=== PATIENT | male | born 2005 | race Caucasian/White ===

== ENCOUNTER 2024-12-05 18:55 | Emergency (ER) | payer BC, SELFPAY ==
--- NOTE | ~2024-12-05 | XR_ITS ---
CLINICAL HISTORY: chest pain 1 view chest x-ray Comparison: None provided Findings: The lungs are clear. Heart size is normal. No acute fracture. IMPRESSION: 1. No acute findings. This document has been electronically signed by: Rocael Farias MD on 12/05/2024 20:19:38
--- NOTE | 2024-12-05 18:56 | ECG_ITS ---
Test Reason : CHEST PAIN Blood Pressure : */* mmHG Vent. Rate : 93 BPM Atrial Rate : 93 BPM P-R Int : 118 ms QRS Dur : 88 ms QT Int : 350 ms P-R-T Axes : 36 31 59 degrees QTcB Int : 435 ms Normal sinus rhythm Normal ECG No previous ECGs available Referred By: Alison Flaherty Electronically Signed By: PEDRO DOMÍNGUEZ MD
--- NOTE | 2024-12-05 18:56 | ED.GENADULT ---
HPI - General Adult General Chief complaint: Chest Pain Stated complaint: chest pain Time Seen by Provider: 12/05/24 19:42 History of Present Illness HPI narrative: Patient is a 19-year-old male presents today with having chest pain shortness of breath that started a few days ago. The pain lasts for a few minutes there is no trigger not associated with any shortness breath or diaphoresis. Patient from home. No history of diabetes, hypertension, high cholesterol, smoking, mi. no sudden deaths in the family. No dizziness. The pain is mid chest. Related Data Allergies Allergy/AdvReac Type Severity Reaction Status Date / Time No Known Allergies Allergy Verified 12/05/24 19:06 Review of Systems Review of Systems: Positive chest pain Yes all other systems are reviewed and are negative PENDING SALE TO [facility] Past Medical History Attestation statement: The following information was validated with the patient. Social History Social History Alcohol intake: current Alcohol intake frequency: 3 or more drinks per day Alcohol type: beer, wine and hard liquor Smoked in Last 30 Days: No Use of substances other than those prescribed or required for medical reasons: No Advance Directives: No Advance Directives Information Provided: No Do you have a plan to hurt others: No Plan Physical Exam ED Exam Exam: Appearance: Alert. Oriented X3. No acute distress. Eyes: Pupils equal, round and reactive to light. ENT: Pharynx normal. Neck: Normal inspection. Neck supple. No lymph nodes noted. No crepitus CVS: Normal heart rate and rhythm. Pulses normal. Normal S1 and S2 Respiratory: No respiratory distress. Breath sounds normal. No Wheezing. No rales Abdomen: Soft and nontender. No rigidity. No distention. good BS x4 Skin: Skin warm and dry. Normal skin color. Normal skin turgor. Extremities: No lower extremity edema. Neurovascular intact to all extremities. No Lacerations. No Rash Neuro: Oriented X 3. No motor deficit. No sensory deficit. Moving all extermities. No slurred speech Vital Signs: Vital Signs - 24 hr 12/05/24 19:05 12/05/24 21:40 Temperature 98.2 F 98.0 F Pulse Rate 94 70 Respiratory Rate 18 14 Blood Pressure 139/78 126/66 Pulse Oximetry 97 96 Oxygen Delivery Method Room Air Room Air BMI result Body Mass Index 17.8 Course Course Course Narrative: Rapid medical examination performed in triage by Alison Flaherty PA-C. Patient is a 19 year old assigned male at presenting to the emergency department with chest pain. Detailed physical exam and review of systems are deferred to the primary care nurse practitioner. EKG, labs, imaging, swabs ordered. Patient placed back in the waiting room pending room availability and results. Medications Administered Discontinued Medications Generic Name Dose Route Start Last Admin Trade Name Tracy PRN Reason Stop Dose Admin Lorazepam 0.5 mg 12/05/24 21:06 12/05/24 21:29 Lorazepam 0.5 Mg Tablet PO 12/05/24 21:07 0.5 mg ONCE ONE Administration Medical Decision Making Medical Decision Making [facility] Narrative: Presented with nonspecific chest pain. Patient no acute distress. O2 sat is normal. No hypoxia. No leg pain no history of blood clots no history of cancer no history of travel story not consistent with PE. My interpretation patient's chest x-ray showed no pneumonia no pneumothorax no rib fracture. My interpretation patient's EKG showed a sinus rhythm heart rate is 60 MT QRS QTC normal no acute ST segment elevation patient's troponin is negative. In the setting of atypical history negative troponin 19 years old heart score is less than 3. Had elevated LFT of question etiology will have patient follow-up on an outpatient basis. Currently in stable condition no distress. Patient's D-dimer is negative in the setting of low risk unlikely to have ACS 2nd set enzyme was negative as well. Will have patient closely follow-up for the elevated LFTs. We did do a hepatitis panel which will be pending. Will need follow-up on an outpatient basis patient is well-appearing no distress. Differential Diagnosis Differential Diagnoses: The differential diagnosis associated with the presentation includes ACS, pneumonia, pneumothorax, rib fracture, musculoskeletal pain Admission/Observation Consideration of admission/observation: Escalation of care including admission/observation considered Lab Data [facility] Lab Attestation statement: I reviewed the patient's lab results. 12/05/24 19:18 12/05/24 19:18 Labs: Lab Results 12/05/24 12/05/24 Range/Units 19:18 21:21 WBC 9.2 (4.8-10.8) X10*3/uL RBC 5.35 (4.60-5.80) X10*6/uL Hgb 14.6 (14.0-18.0) g/dl Hct 41.4 L (42.0-52.0) % MCV 77.4 L (80.0-98.0) fL MCH 27.3 (27.0-33.0) pg MCHC 35.3 (31.0-36.0) g/dl RDW 13.2 (11.0-16.0) % Plt Count 174 (160-400) X10*3/uL MPV 11.3 (9.4-12.4) fL Immature Gran % (Auto) 0.2 (0.0-0.4) % Neut % (Auto) 77.6 H (45-73) % Lymph % (Auto) 13.1 L (20-40) % Mcpherson % (Auto) 7.8 (2-11) % Eos % (Auto) 0.5 (0-4) % Baso % (Auto) 0.8 (0-2) % Lymph # (Auto) 1.2 (1.2-4.9) X10*3/uL Mcpherson # (Auto) 0.7 (0.1-1.2) X10*3/uL Eos # (Auto) 0.1 (0.0-0.4) X10*3/uL Baso # (Auto) 0.1 (0.0-0.2) X10*3/uL Abs Immat Gran (auto) 0.02 (0.00-0.03) X10*3/uL Absolute Neuts (auto) 7.1 (2.0-8.3) x10*3/uL Absolute Nucleated RBC 0.000 (0.0-0.012) X10*3/uL Nucleated RBC % (auto) 0.0 (0.0-0.2) /100WBC PT 11.0 (10.9-12.4) SEC INR 1.0 (0.9-1.1) D-Dimer High Sensitivty 158 NG/ML Sodium 141 (135-145) mmol/L Potassium 3.6 (3.3-5.1) mmol/L Chloride 99 (96-108) mmol/L Carbon Dioxide 27 (22-29) mmol/L Anion Gap 19 (12-20) BUN 9 (9-16) mg/dL Creatinine 0.98 (0.5-1.4) mg/dL Estim Creat Clear Calc 89.3 Estimated GFR > 60 Random Glucose 98 (60-115) mg/dL Calcium 9.8 (8.4-10.2) mg/dL Magnesium 1.5 L (1.6-2.6) mg/dL Total Bilirubin 0.7 (0.0-1.0) mg/dL AST 98 H (5-37) U/L ALT 253 H (0-40) U/L Alkaline Phosphatase 208 H (39-117) U/L Troponin I High Sens < 2.7 < 2.7 (<3.5-35.0) ng/L Total Protein 7.3 (6.5-8.0) g/dL Albumin 5.0 (3.5-5.0) g/dL Independent Interpretation I performed an independent interpretation of an: Plain X-Ray (Chest x-ray grossly negative no pneumonia no pneumothorax) Radiology Impression Discussion of test interpretation with radiology: I have reviewed the radiologist's reading. Discharge Plan Discharge Clinical Impression: Chest pain Patient Disposition: Home, Self-Care Instructions: Chest Pain (ED) Additional Instructions: Your liver enzymes were abnormal. Please closely follow-up on an outpatient basis. Question as to the etiology of this. Referrals: Lei Swann MD [Physician, Urology] - 12/09/24 Print Language: Tanzanian
[2024-12-05 19:05] VITALS: BP 139/78; PULSE 94; RESP 18; TEMP 36.8; O2SAT 97; BMI 17.8
[2024-12-05 19:22] LABS: MANUAL DIFF FLAG NO
[2024-12-05 19:23] LABS: Hematocrit 41.4 % (42.0-52.0); Hemoglobin 14.6 g/dl (14.0-18.0); Imm Gran Abs Auto 0.02 X10*3/uL (0.00-0.03); Imm Gran Pct Auto 0.2 % (0.0-0.4); Lymphocytes Absolute Auto 1.2 X10*3/uL (1.2-4.9); Mean Corpuscular HGB Conc 35.3 g/dl (31.0-36.0); Mean Corpuscular Hemoglobin 27.3 pg (27.0-33.0); Mean Corpuscular Volume 77.4 fL (80.0-98.0); NRBC Abs Auto 0.000 X10*3/uL (0.0-0.012); NRBC Pct Auto 0.0 /100WBC (0.0-0.2); Platelet Count 174 X10*3/uL (160-400); Red Blood Count 5.35 X10*6/uL (4.60-5.80); White Blood Count 9.2 X10*3/uL (4.8-10.8)
[2024-12-05 19:28] LABS: INTERNATIONAL NORM RATIO 1.0 (0.9-1.1); Prothrombin Time 11.0 SEC (10.9-12.4)
[2024-12-05 19:38] LABS: Alanine Aminotransferase 253 U/L (0-40); Albumin Level 5.0 g/dL (3.5-5.0); Alkaline Phosphatase 208 U/L (39-117); Anion Gap 19 (12-20); Aspartate Amino Transferase 98 U/L (5-37); Blood Urea Nitrogen 9 mg/dL (9-16); Calcium 9.8 mg/dL (8.4-10.2); Carbon Dioxide 27 mmol/L (22-29); Chloride 99 mmol/L (96-108); Creatinine Clr Calc Pharmacy 89.3; Estimated Glomerular Filt Rate > 60; Magnesium 1.5 mg/dL (1.6-2.6); Potassium 3.6 mmol/L (3.3-5.1); Sodium 141 mmol/L (135-145); Total Protein 7.3 g/dL (6.5-8.0)
[2024-12-05 19:52] LABS: Troponin-I High Sensitivity < 2.7 ng/L (<3.5-35.0)
--- OUTSIDE RECORDS SUMMARY | 2024-12-05 20:14 | XMS_ITS | Clinical Summary ---
Author Organization [facility] [employer] Address [address] [facility] [place] [address] Care Team Providers Care Senior Php Web Developer Name Role Phone Xuan Glez MD Primary Care Provider [phone] Allergies No known active allergies Medications ADDERALL XR 20 mg 24 hr capsule TK 1 C PO ONCE D 0 04/01/2017 Active Social History Tobacco Use Types Packs/Day Years Used Date Smoking Tobacco: Never Sex and Gender Information Value Date Recorded Sex Assigned at Not on file Legal Sex Male 5:27 PM EST Gender Identity Not on file Sexual Orientation Not on file Last Filed Vital Signs Vital Sign Reading Time Taken Comments Blood Pressure 108/72 04/24/2017 6:26 PM EST Pulse 95 04/24/2017 6:26 PM EST Temperature 36.6 C (97.9 F) 04/24/2017 6:26 PM EST Respiratory Rate 16 04/24/2017 6:26 PM EST Oxygen Saturation 99% 04/24/2017 6:26 PM EST Inhaled Oxygen Concentration - - Weight 34.5 kg (76 lb) 04/24/2017 6:26 PM EST Height 147.3 cm (4' 10 ) 04/24/2017 6:26 PM EST Body Mass Index 15.88 04/24/2017 6:26 PM EST Plan of Treatment Health Maintenance Due Date Last Done Comments Depression: Screening Annual ly using PHQ-2/9 in Adults 18 yrs or above (or HM Modifier)([facility]) 07/29/2021 Hepatitis C Virus Infection in Adolescents and Adults: Screening (or Modifier) ([facility]) 07/29/2021 SDOH Screening Reminder: Nena quesada for all adults ([facility]) 07/29/2021 Tobacco Smoking Cessation: i n Adults excluding Women: Behavioral and Pharmacotherapy Interventions ([facility]) 07/29/2021 DTaP/Tdap/Td Vaccines ([facility]) (1 - Tdap) 07/29/2022 Flu Vaccination: Yearly for ages 18mos through 64 years (or Modifier)([facility]) 10/23/2024 COVID-19 Vaccine Screening: Initial Series and Booster Status ([facility]) ( - 2023- season) 2024 Zoster/Shingles Vaccine Seri es Screening: Adults aged 18+ yrs (or HM Modifiers)([facility]) (1 of 2) 07/29/2053 Pneumococcal Vaccination Scr eening: Pts 0-19 & 19-49 yrs of age ([facility]) Aged Out No longer eligible based on patient's age to complete this topic Medical Devices Not on file Care Teams Senior Php Web Developer Relationship Specialty Start Date End Date Xuan Glez MD PCP - General Pediatrics 04/24/17
--- OUTSIDE RECORDS SUMMARY | 2024-12-05 20:14 | XMS_ITS | Clinical Summary ---
Author Organization Carla Seaman [facility] Address [address] [place] [address] Care Team Providers Care Consumer Affairs Director Name Role Phone Xuan Glez Unavailable Xuan Glez Primary Care Provider [phone] Allergies No known active allergies Medications omeprazole (PriLOSEC) [address] capsule Take 1 capsule (20 mg total) by mouth daily. 07/24/2023 Active Encounters Date Type Department Care Team Description 09/12/2024 3:55 PM EDT - 09/12/2024 6:01 PM EDT Emergency [facility] Emergency Department [address] [place] [address] Howard Chavarria MD Paresthesia (Primary Dx) Discharge Disposition: Home or Self Care from Last 3 Months Social History Tobacco Use Types Packs/Day Years Used Date Smoking Tobacco: Never Assessed Sex and Gender Information Value Date Recorded Sex Assigned at Male 09/02/2024 4:52 PM EDT Legal Sex Male 2:01 AM EST Gender Identity Male 04/23/2023 2:01 AM EST Sexual Orientation Not on file Last Filed Vital Signs Vital Sign Reading Time Taken Comments Blood Pressure 108/67 09/12/2024 3:48 PM EDT Pulse 92 09/12/2024 3:48 PM EDT Temperature 36.9 C (98.4 F) 09/12/2024 3:48 PM EDT Respiratory Rate 22 09/12/2024 3:48 PM EDT Oxygen Saturation 99% 09/12/2024 3:48 PM EDT Inhaled Oxygen Concentration - - Weight 59 kg (130 lb) 09/12/2024 3:48 PM EDT Height 170.2 cm (5' 7 ) 09/12/2024 3:48 PM EDT Body Mass Index 20.36 09/12/2024 3:48 PM EDT Plan of Treatment Health Maintenance Due Date Last Done Comments Depression Screening 2007 Meningococcal B Vaccines (1 of 2 - Standard) 2019 Hepatitis C Screening 07/29/2021 DTaP,Tdap,and Td Vaccines (7 - Td or Tdap) 07/31/2024 07/31/2014, 08/25/2007, 01/29/2005, Additional history exists COVID-19 Vaccine ( season) 2024 Influenza Vaccine (#1) 2024 , 12/24/2018, 12/16/2017, Additional history exists Blood Pressure 09/12/2028 09/12/2024 Pneumococcal Vaccine: Pediatrics (0 to 5 Years) and At-Risk Patients (6 to 64 Years) Aged Out 07/31/2004, 02/07/2004, 2003, Additional history exists No longer eligible based on patient's age to complete this topic Meningococcal Vaccines Completed 12/31/2019, 2014 Procedures Procedure Name Priority Date/Time Associated Diagnosis Comments CT HEAD WO CONTRAST STAT 09/12/2024 5 :26 PM EDT from Last 3 Months Results * CT Head WO IV Contrast (09/12/2024 5:26 PM EDT) Anatomical Region Laterality Modality Head Computed Tomogra phy 09/12/2024 5:35 PM EDT Impressions 09/12/2024 5:37 PM EDT 1. No acute intracranial abnormality. Signed By: Bubba Christopher on 09/12/2024 5:37 PM on [email or web address] Narrative 09/12/2024 5:[address] HEAD WO CONTRAST Interpretation Location: [place] [address] Accession Number: [id number] Date / Time: 09/12/2024 5:24 PM INDICATION: left face / body numbness TECHNIQUE: CT images of the head were obtained without the administration of contrast. All CT exams at this facility use one or more dose reduction techniques such as automated exposure control, mA/kV adjustment per patient size of (including targeted exams where dose is matched to indication, i.e., head) or iterative reconstruction technique. DOSE: DLP: 875 mGy-cm. COMPARISON: None. FINDINGS: SHAREPOINT APPLICATION DEVELOPER: No additional findings. Ventricular caliber is within normal limits for the patient's age. There is no intracranial mass lesion or focal mass effect. Density of the brain parenchyma is normal for the patient's age. There is no demarcated territorial infarct. No acute intraparenchymal or subarachnoid hemorrhage is present. There is no extraaxial collection. The visualized paranasal sinuses are well aerated. The mastoid air cells are well aerated. The visualized orbits are unremarkable. There is no calvarial fracture. Procedure Note Bubba Christopher MD - 09/12/2024 CT HEAD WO CONTRAST Interpretation Location: [place] [address] Accession Number: [id number] Date / Time: 09/12/2024 5:24 PM INDICATION: left face / body numbness TECHNIQUE: CT images of the head were obtained without the administration of contrast. All CT exams at this facility use one or more dose reduction techniques such as automated exposure control, mA/kV adjustment per patient size of (including targeted exams where dose is matched to indication, i.e., head) or iterative reconstruction technique. DOSE: DLP: 875 mGy-cm. COMPARISON: None. FINDINGS: SHAREPOINT APPLICATION DEVELOPER: No additional findings. Ventricular caliber is within normal limits for the patient's age. There is no intracranial mass lesion or focal mass effect. Density of the brain parenchyma is normal for the patient's age. There is no demarcated territorial infarct. No acute intraparenchymal or subarachnoid hemorrhage is present. There is no extraaxial collection. The visualized paranasal sinuses are well aerated. The mastoid air cells are well aerated. The visualized orbits are unremarkable. There is no calvarial fracture. IMPRESSION: 1.No acute intracranial abnormality. Signed By: Bubba Christopher on 09/12/2024 5:37 PM on [facility] Howard Chavarria MD IM CT ORDERABLES Final Result from Last 3 Months Insurance [employer] Care Teams Consumer Affairs Director Relationship Specialty Start Date End Date Xuan Glez [address] [address] PCP - Insurance Assigned PCP 07/11/23 Xuan Glez [address] [address] PCP - General 07/10/23
--- OUTSIDE RECORDS SUMMARY | 2024-12-05 20:14 | XMS_ITS | Clinical Summary ---
Author Organization [facility] Address [address] [place] [address] [place] [phone] Phone Care Team Providers Care Supervisor Uranium Processing Name Role Phone Xuan Glez MD Primary Care Provider [phone] Allergies No known active allergies Medications dextroamphetamin e-amphetamine (ADDERALL XR) 20 MG 24 hr capsule Take 20 mg by mouth daily. 06/03/2017 Active Active Problems No known active problems Family History Medical History Relation Comments No Known Problems Father No Known Problems Mother Relation Status Comments Father Mother Social History Tobacco Use Types Packs/Day Years Used Date Smoking Tobacco: Never Smokeless Tobacco: Never Alcohol Use Standard Drinks/Week Comments No 0 (1 standard drink = 0.6 oz pur e alcohol) Sex and Gender Information Value Date Recorded Sex Assigned at Not on file Legal Sex Male 4:58 PM EDT Gender Identity Not on file Sexual Orientation Not on file Last Filed Vital Signs Vital Sign Reading Time Taken Comments Blood Pressure 101/64 07/05/2017 5:08 PM EDT Pulse 83 07/05/2017 5:08 PM EDT Temperature 36.8 C (98.2 F) 07/05/2017 5:08 PM EDT Respiratory Rate 20 07/05/2017 5:08 PM EDT Oxygen Saturation 99% 07/05/2017 5:08 PM EDT Inhaled Oxygen Concentration - - Weight - - Height - - Body Mass Index - - Plan of Treatment Not on file Medical Devices Not on file [facility] PPO EPO [place] [address] [place] [id number] PPO EPO Member Subscriber Plan / Payer (Ef fective 2017-Present) Name:Richard Dexter Relation to Subscriber:Child Name:PAPITO DEXTER Date of :1965 (Home) Address: [address] [place] [address] Payer ID:[id number] (NAIC) Type:PPO Address: [address] [place], [place] [address] PPO EPO [facility] E[facility] PPO EPO [facility] Care Teams Supervisor Uranium Processing Relationship Specialty Start Date End Date Xuan Glez MD [address] [facility] [address] [place] [address] PCP - General Pediatrics 07/05/17 Additional Source Comments The information contained in this document represents components of the legal health record. It is not the complete legal health record.[facility]
--- OUTSIDE RECORDS SUMMARY | 2024-12-05 20:15 | XMS_ITS | Clinical Summary ---
Author Organization [facility] Address [address] [place] [phone] Phone Care Team Providers Care Stave Grader Name Role Phone Unavailable Primary Care Provider Unavailabl e Allergies No known active allergies Medications amphetamine-dextro amphetamine XR (Adderall XR) 15 MG 24 hr capsuleIndications :Attention-deficit hyperactivity disorder, predominantly inattentive type Take 1 capsule (15 mg total) by mouth every morning. 30 capsule 0 Active Active Problems Problem Noted Date Diagnosed Date Gynecomastia 05/29/2018 Assessment & Plan (05/29/2018 4:42 PM EST): Normal, minor Failed vision screen 12/16/2017 Assessment & Plan (12/31/2019 4:02 PM EDT): Refer optho Constitutional delay of growth and development 0 10/25/2017 Overview (10/25/2017): Has had negative labs for chronic disease. Severely underweight. Assessment & Plan (12/31/2019 3:50 PM EDT): Growing better. Encouraged to increase calories Assessment & Plan (09/21/2019 4:32 PM EDT): Now going through growth spurt Assessment & Plan (05/18/2019 4:57 PM EST): Excellent interval growth Assessment & Plan (05/29/2018 4:41 PM EST): Good interval height increase, puberty progressing and maintaining bmi. Encouraged to keep up good food intake Assessment & Plan (03/31/2018 5:07 PM EST): Good interval height increase. Still trying to push calories Assessment & Plan (12/16/2017 5:20 PM EDT): Restart periactin to encourage weight increase. If not height increase by 15 yrs consider further eval Lip licking dermatitis 02/21/2017 Assessment & Plan (02/21/2017 4:42 PM EST): Discussed need to stop licking. Use lip balm Skin picking habit 09/06/2016 Assessment & Plan (12/16/2017 5:21 PM EDT): Not interested in stopping Assessment & Plan (09/06/2016 5:34 PM EDT): May get better off adderall. Encouraged to keep fidget spinner in hands to prevent desire to pick Underweight 08/15/2015 Assessment & Plan (12/31/2019 3:50 PM EDT): Strongly encouraged to increaser intake Assessment & Plan (09/21/2019 4:32 PM EDT): Encouraged to eat 3 regular meals per day. Sit down with family for meals Assessment & Plan (05/18/2019 4:57 PM EST): Adequate weight gain. Encouraged to continue to try to push calories Assessment & Plan (12/24/2018 5:47 PM EDT): 15 lb gain in past year, appetite improved. Assessment & Plan (09/29/2018 4:38 PM EDT): Good interval growth and weight gain while off meds. Recheck when back on meds in 3-4 months Assessment & Plan (09/12/2017 4:55 PM EDT): Weight loss and poor interval growth. Will see if rebounds on summer holiday from med and with periactin. Recheck 6 weeks Assessment & Plan (06/03/2017 4:57 PM EDT): Improved weight gain. Encouraged to keep it up. Suggest using periactin school nights. Recheck 3-4 weeks Assessment & Plan (02/21/2017 4:43 PM EST): Severely underweight, though gained well off adderall. Strongly encouraged to take cyproheptadine. Recheck 2 months. If not better try change to focalin. > 50% of [id number] time during this visit was spent on counseling and/or coordination. Time spent on visit: greater than 25minutes. Assessment & Plan (11/15/2016 5:03 PM EDT): Excellent weight gain! Recheck 6 weeks into school. If weight dropping will restart periactin Assessment & Plan (09/06/2016 5:33 PM EDT): insuffient weight gain. Suggest summer off stimulant and start periactin to encourage growth. Start 4 mg qhs, 3 weeks on, one week off, can decrease to 2 mg if sleepy during the day target weight 75 lbs by 11/23/16 Assessment & Plan (08/02/2016 5:41 PM EDT): Marked fall off in weight and growth. Will do labs to assess for chronic disease including celiac (=fhx diabetes), ibd, liver disease, thyroid disease. Check bone age. Strongly en couraged to start periactin, though father reluctant . F/u 6 weeks to check growth. Attention-deficit hyperactiv ity disorder, predominantly inattentive type 01/21/2015 Assessment & Plan (12/31/2019 3:50 PM EDT): Currently not using Adderall xr. Suggested father check in with school to make sure doing ok Assessment & Plan (09/21/2019 4:33 PM EDT): Richard agrees to restart adderall xr 15 mg 1 week prior to school and f/u with me one month later Assessment & Plan (05/18/2019 4:58 PM EST): Encouraged to restart med to help school work. Agreed to restart Adderall xr 15 mg F/u 4 months to check school weight and growth Assessment & Plan (01/12/2019 4:50 PM EDT): ADD/ADHD, improved control from baseline, but not taking regularly c/o side effects [] Medication: will decrease from 20 mg adderall xr to 15 mg xr To see if can get some focus improvement without side effects [] healthy diet and sleep routine [] f/u 3-4 months to check weight and effectiveness Father to check in with teachers before then Goals: 1. improved academics 2. less time to do homework 3. less distracted Next follow up:4 months Reviewed common side effects of medication (decreased appetite, sleep problems, transient stomachache, transient headache, behavioral rebound). Call if any infrequent side effects occur: weight loss, increased heart rate and/or blood pressure, dizziness, hallucinations/lola, exacerbation of tics and Tourette syndrome (rare) > 50% of [id number] time during this visit was spent on counseling and/or coordination. Time spent on visit: greater than 15 minutes. I counselled this patient on the diagnosis and management of the diagnosed condition. Assessment & Plan (12/24/2018 5:47 PM EDT): Doing well on current med. Assessment & Plan (09/29/2018 4:37 PM EDT): ADD/ADHD, improved control from baseline, no appreciable side effects, weight stable [] continue current medication: Adderall xr 20 mg, restart 3 days before start of school [] school support, IEP/504 [] healthy diet and sleep routine reminded of need for big breakfast at start of school Goals: 1. improved academics 2. less time to do homework 3. less distracted Next follow up:3-4 months Reviewed common side effects of medication (decreased appetite, sleep problems, transient stomachache, transient headache, behavioral rebound). Call if any infrequent side effects occur: weight loss, increased heart rate and/or blood pressure, dizziness, hallucinations/lola, exacerbation of tics and Tourette syndrome (rare) > 50% of [id number] time during this visit was spent on counseling and/or coordination. Time spent on visit: greater than 10 minutes. I counselled this patient on the diagnosis and management of the diagnosed condition. Assessment & Plan (05/29/2018 4:41 PM EST): ADD/ADHD, improved control from baseline, no appreciable side effects, weight stable [] continue current medication:adderall xr 20 [] school support, IEP/504 Push high calorie healthy foods 1. improved academics 2. less time to do homework 3. less distracted Next follow up:4 months Reviewed common side effects of medication (decreased appetite, sleep problems, transient stomachache, transient headache, behavioral rebound). Call if any infrequent side effects occur: weight loss, increased heart rate and/or blood pressure, dizziness, hallucinations/lola, exacerbation of tics and Tourette syndrome (rare) > 50% of [id number] time during this visit was spent on counseling and/or coordination. Time spent on visit: greater than 15 minutes. I counselled this patient on the diagnosis and management of the diagnosed condition. Assessment & Plan (03/31/2018 5:06 PM EST): ADD/ADHD, improved control from baselinebut severe appetite suppression. Strongly encouraged breakfast, urged to start cyrpohepatdine. [] continue current medication:adderall xr 20 mg [] school support, IEP/504 [] healthy diet and sleep routine [] Reviewed availability of HPP team [] follow-up Parent and Teacher NICHQs at next visit Goals: 1. improved academics 2. less time to do homework 3. less distracted Next follow up:2 months Reviewed common side effects of medication (decreased appetite, sleep problems, transient stomachache, transient headache, behavioral rebound). Call if any infrequent side effects occur: weight loss, increased heart rate and/or blood pressure, dizziness, hallucinations/lola, exacerbation of tics and Tourette syndrome (rare) > 50% of [id number] time during this visit was spent on counseling and/or coordination. Time spent on visit: greater than 15 minutes. I counselled this patient on the diagnosis and management of the diagnosed condition. F/u 2 months to check weight Assessment & Plan (12/16/2017 5:20 PM EDT): Doing well on adderall xr 20 Assessment & Plan (09/12/2017 4:55 PM EDT): ADD/ADHD, improved control from baseline, no appreciable side effects, weight stable [] continue current medication: adderall xr 20 through end of school year, then stop [] has school support, IEP/504 [] healthy diet and sleep routine [] Reviewed availability of HPP BH team Goals: 1. improved academics 2. less time to do homework 3. less distracted Next follow up: 4-6 weeks. Restart periactin and push food off adderall. If not growing and gaining will need endocrine referral Assessment & Plan (06/03/2017 4:56 PM EDT): Good focus doing well in school. Weight gain somewhat improved. Continue adderall xr 20 Assessment & Plan (02/21/2017 4:42 PM EST): ADD/ADHD, improved control from baseline,but inadequate weight and height increase [] continue current medication: adderall xr [] has school support, IEP/504 [] healthy diet and sleep routine Add cyproheptadine for appetite stimulation Goals: 1. improved academics 2. less time to do homework 3. less distracted Next follow up: Reviewed common side effects of medication (decreased appetite, sleep problems, transient stomachache, transient headache, behavioral rebound). 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 Then increase to full dose Assessment & Plan (09/06/2016 5:32 PM EDT): Did well with adderall at school, but fall off in growth and weight. Will take a break over summer and resume on week school psychology professor Assessment & Plan (08/02/2016 5:39 PM EDT): Doing well on current meds, Adderall xr 20, but unacceptable weight loss and slow down of growth. Suggest holding on weekends and stopping as soon as school ends. Developmental disorder of scholastic skills 12/25 Resolved Problems Problem Noted Date Diagnosed Date Resolved Date Finger dislocation 07/05/2017 8 Overview (07/05/2017): Treated at ER Anxiety disorder 09/19/2015 12/31/2019 Adjustment disorder with mix ed disturbance of emotions and conduct 01/21/2015 12/31/2019 Assessment & Plan (09/06/2016 5:32 PM EDT): Not interested in resuming therapy at this time Immunizations Immunization Administration Dates Next Due DTaP 08/25/2007, 5,02/07/2004,12/14,2003 HPV Vaccine 9 Valent 09/19/2015,10/11/2014 HPV, Quadrivalent 07/31/2014 Hep A, ped/adol 12/16/2017,10/18/2015 Hep B, ped/adol 02/07/2004,2003,2003 Hib (PRP-OMP) 01/29/2005, 4,2003,10/07 Influenza, injectable, quadr ivalent, preservative free 12/31/2019,12/24/2018,12/16/2017,01/10,01/23/2016,01/22/2015,02/02/2013 ,12/03/2011,01/26/2009,01/29/2005,10/2004,02/07/2004 Influenza, intranasal, trivalent 12/03/2013 MMR 08/25/2007,10/23/2004 Meningococcal Conj (Menactra) MCV4P 12/31/2019,0 07/31/2014 Pneumococcal Conjugate 07/31/2004,2003,2003,10/07 Polio 08/25/2007, 5,2003,10/07 Tdap 07/31/2014 Varicella 08/25/2007,07/31/2004 Family History Medical History Relation Name Comments Stroke Mother ADD / ADHD Sister Diabetes Sister Relation Name Status Comments Mother hemorrhagic str charles with significant disability Other Siblings norberto with IDDM and ADHD Sister Social History Tobacco Use Types Packs/Day Years Used Date Smoking Tobacco: Never Smokeless Tobacco: Never Alcohol Use Standard Drinks/Week Comments No 0 (1 standard drink = 0.6 oz pur e alcohol) Sex and Gender Information Value Date Recorded Sex Assigned at Not on file Legal Sex Male 1:18 PM EST Gender Identity Not on file Sexual Orientation Not on file Last Filed Vital Signs Vital Sign Reading Time Taken Comments Blood Pressure 114/73 12/31/2019 3:26 PM EDT Pulse 89 09/21/2019 4:06 PM EDT Temperature - - Respiratory Rate - - Oxygen Saturation - - Inhaled Oxygen Concentration - - Weight 46.3 kg (102 lb) 12/31/2019 3:26 PM EDT Height 165.1 cm (5' 5 ) 12/31/2019 3:26 PM EDT Body Mass Index 16.97 12/31/2019 3:26 PM EDT Plan of Treatment Health Maintenance Due Date Last Done Comments Men B Vaccine (1 of 2 - Standard) 2019 DTaP,Tdap,and Td Vaccines (7 - Td or Tdap) 07/31/2024 07/31/2014, 08/25/2007, 01/29/2005, Additional history exists Influenza Vaccines (#1) 2024 12/31/19 20, 12/24/2018, 12/16/2017, Additional history exists COVID-19 Vaccine (1 - 2023-2 5 season) 2024 Hepatitis B Vaccines Completed 02/07/2004, 2003, 2003 Pneumococcal Vaccine Completed 07/31/2004, 02/07/2004, 2003, Additional history exists HIB Vaccines Completed 01/29/2005, 01/23, 2003, Additional history exists IPV Vaccines Completed 08/25/2007, 09/2004, 2003, Additional history exists MMR Vaccines Completed 08/25/2007, 10/23/2004 Varicella Vaccines Completed 08/25/2007, 07/31/2004 HPV Vaccines Completed 09/19/2015, 09/23, 07/31/2014 Hepatitis A Vaccines Completed 12/16/2017, 10/18/19 16 Meningococcal Vaccine Completed 12/31/2019, 015 Insurance [facility] BCBS BLUE CARD OUT OF STATE
[2024-12-05 21:33] LABS: D Dimer High Sensitivity 158 NG/ML
[2024-12-05 21:40] VITALS: BP 126/66; PULSE 70; RESP 14; TEMP 36.7; O2SAT 96
[2024-12-05 21:48] LABS: Troponin-I High Sensitivity < 2.7 ng/L (<3.5-35.0)
[2024-12-05 23:13] VITALS: BP 121/64; PULSE 68; RESP 13; TEMP 36.9; O2SAT 99
[2024-12-07 08:43] LABS: HBS Num1 0.00 mIU/mL (0-7.99); Hepatitis A Antibody IgM 0.15 Index (0-0.79); ~Hepatitis A Antibody IgM Nonreactive (Nonreactive)
[2024-12-07 08:44] LABS: HBc Num1 0.08 S/CO (0.00-0.79); HBsAGNum1 0.41 S/CO (0.00-0.99); Hepatitis B Surface Antigen Negative (Negative); ~HepC Num1 0.08 S/CO (0.00-0.79); ~Hepatitis B Surface Antibody NONREACTIVE (Nonreactive); ~Hepatitis C Antibody Nonreactive (Nonreactive)
== END 2024-12-05 23:19 | disposition home or self-care (01) ==
PROVIDERS: Physician Assistant Medical; Emergency Provider Emergency Medicine Emergency Medical Services
DX: R07.9 Chest pain, unspecified (principal); R79.89 Other specified abnormal findings of blood chemistry
CPT/HCPCS: 36415; 71045; 80053; 83735; 84484; 85025; 85379; 85610; 86704; 86706; 86709; 86803; 87340; 93005; 99284; 99285

== ENCOUNTER → 2024-12-05 18:56 | Outpatient (BNV) | payer BC, SELFPAY | PROVIDERS: Emergency Provider Emergency Medicine Emergency Medical Services; Visit Provider Internal Medicine Cardiovascular Disease | DX: R07.89 Other chest pain (principal) | CPT/HCPCS: 93010 ==

== ENCOUNTER → 2024-12-05 19:54 | Outpatient (BNV) | payer BC, SELFPAY | PROVIDERS: Emergency Provider Emergency Medicine Emergency Medical Services; Visit Provider Radiology Diagnostic Radiology | DX: R07.9 Chest pain, unspecified (principal) | CPT/HCPCS: 71045 ==